=== PATIENT | male | born 1940 | race Caucasian/White ===

== ENCOUNTER 2018-05-20 15:08 | Inpatient (IN) | payer OTHER ==
[2018-05-20 15:47] LABS: HEMATOCRIT 50.8 % (42.0-52.0); HEMOGLOBIN 16.7 g/dl (14.0-18.0); MEAN CORPUSCULAR HEMOGLOBIN 30.5 pg (29.0-33.0); MEAN CORPUSCULAR HGB CONC 32.9 g/dl (32.0-37.0); MEAN CORPUSCULAR VOLUME 92.9 fl (82.0-101.0); MEAN PLATELET VOLUME 10.7 fl (7.4-10.4); PLATELET COUNT 342 10^3/UL (140-415); POSITIVE DIFF @See below; RED BLOOD COUNT 5.47 10^6/ul (4.70-6.10); RED CELL DISTRIBUTION WIDTH 14.7 % (11.5-14.5)
[2018-05-20 15:50] LABS: INR 1.01; PROTIME 13.4 Sec (11.9-14.9)
[2018-05-20 15:51] LABS: PARTIAL THROMBOPLASTIN TIME 23.8 Sec (23.0-35.0)
[2018-05-20 15:56] LABS: ALANINE AMINOTRANSFERASE 44 IU/L (13-69); ALBUMIN 3.9 g/dl (3.3-4.9); ALBUMIN/GLOBULIN RATIO 0.97; ALKALINE PHOSPHATASE 97 IU/L (42-121); ANION GAP 17 (8-16); ASPARTATE AMINO TRANSFERASE 37 IU/L (15-46); BILIRUBIN,INDIRECT 0.6 mg/dl (0-1.1); BILIRUBIN,TOTAL 0.6 mg/dl (0.2-1.3); BLOOD UREA NITROGEN 58 mg/dl (7-20); CALCIUM 9.8 mg/dl (8.4-10.2); CARBON DIOXIDE 28 mmol/L (21-31); CHLORIDE 116 mmol/L (97-110); CREATININE 1.37 mg/dl (0.61-1.24); GLUCOSE 90 mg/dl (70-220); POTASSIUM 4.9 mmol/L (3.5-5.1); SODIUM 156 mmol/L (135-144); TOTAL PROTEIN 7.9 g/dl (6.1-8.1)
[2018-05-20 15:58] LABS: LACTIC ACID 2.3 mmol/L (0.5-2.0)
[2018-05-20] MEDS: LORAZEPAM 2 MG INJ IV (16:01)
[2018-05-20] MEDS: VANCOMYCIN 1 GM (PMX) 250 ML IVPB (16:02)
[2018-05-20] MEDS: SODIUM CHLORIDE 0.9% 1L BAG IV* (16:03)
[2018-05-20 16:07] LABS: AMMONIA < 9 umol/l (9-30)
[2018-05-20 16:09] LABS: TROPONIN-I < 0.012 ng/ml (0.000-0.120)
[2018-05-20 16:43] LABS: BAND NEUTROPHILS #M 0.9 10^3/ul (0.0-0.6); BAND NEUTROPHILS % (M) 6 % (0-4); LYMPHOCYTES #M 1.6 10^3/ul (0.8-2.9); LYMPHOCYTES % (M) 10 % (15-51); MONOCYTE #M 0.4 10^3/ul (0.3-0.9); MONOCYTES % (M) 3 % (0-11); PLATELET ESTIMATE NORMAL; SEG NEUT #M 13.1 10^3/ul (1.6-7.5); SEGMENTED NEUTROPHILS (M) % 81 % (39-77)
[2018-05-20 16:44] LABS: ADD MAN DIFF? YES
[2018-05-20] MEDS: CEFEPIME 2GM/50 ML (PMX) 50 ML IVPB (17:33)
[2018-05-20 19:06] LABS: LACTIC ACID 1.6 mmol/L (0.5-2.0)
[2018-05-20] MEDS ORDERED: SOD CHLORIDE 0.9% 1,000 ML IV (19:18)
[2018-05-20 19:30] LABS: ADD UMIC NO; UR ASCORBIC ACID 40 mg/dL (NEGATIVE); UR BACTERIA FEW /HPF (NONE SEEN); UR BILIRUBIN (Dip) NEGATIVE (NEGATIVE); UR BLOOD (Dip) NEGATIVE (NEGATIVE); UR CLARITY SLIGHTLY CLOUDY (CLEAR); UR COLOR YELLOW (YELLOW); UR GLUCOSE (Dip) NEGATIVE (NEGATIVE); UR KETONES (Dip) TRACE mg/dL (NEGATIVE); UR LEUKOCYTE ESTERASE (Dip) NEGATIVE Leu/ul (NEGATIVE); UR MUCUS FEW /HPF (NONE SEEN); UR NITRITE (Dip) NEGATIVE (NEGATIVE); UR RBC 3 /HPF (0-5); UR SPECIFIC GRAVITY (Dip) 1.026 (1.003-1.030); UR TOTAL PROTEIN (Dip) NEGATIVE (NEGATIVE); UR UROBILINOGEN (Dip) NEGATIVE (NEGATIVE); UR WBC 5 /HPF (0-5)
[2018-05-20] MEDS ORDERED: ACETAMINOPHEN 325 MG TAB PO ×2 (19:30→21:00)
[2018-05-20] MEDS ORDERED: ONDANSETRON 4 MG INJ IV (19:30)
[2018-05-20] MEDS ORDERED: LORAZEPAM 0.5 MG TAB PO (21:00)
[2018-05-20] MEDS ORDERED: NACL 0.9% 3 ML SYG IV (21:00)
[2018-05-20] MEDS ORDERED: MAGNESIUM HYDROXIDE 30ML CUP PO (21:00)
[2018-05-20] MEDS ORDERED: BISACODYL (EC) 5 MG TAB PO (21:00)
[2018-05-20] MEDS ORDERED: VANCOMYCIN IV PER PHARMACY XX (21:00)
[2018-05-20] MEDS ORDERED: FAMOTIDINE 20 MG INJ IV (21:00)
[2018-05-20 21:42] LABS: LACTIC ACID 1.5 mmol/L (0.5-2.0)
[2018-05-20] MEDS: HALOPERIDOL 5 MG INJ IM (21:59)
[2018-05-20] MEDS: VANCOMYCIN 1 GM 250 ML IVPB (22:47)
[2018-05-20] MEDS: SOD CHLORIDE 0.9% 1,000 ML IV (22:48)
[2018-05-20] MEDS: DONEPEZIL 5 MG TAB PO (23:00)
[2018-05-20] MEDS: DIVALPROEX (ER) 500 MG TAB PO (23:00)
[2018-05-20] MEDS: FAMOTIDINE 20 MG TAB PO (23:00)
[2018-05-20] MEDS: QUETIAPINE 100 MG TAB PO (23:00)
[2018-05-20] MEDS: HEPARIN 5,000 UNIT/0.5 ML VIAL SC (23:11)
[2018-05-21] MEDS: LORAZEPAM 2 MG INJ IV ×2 (01:22→17:08)
[2018-05-21 05:42] LABS: ADD MAN DIFF? NO
[2018-05-21 05:47] LABS: BASOPHILS % 0.3 % (0.0-2.0); EOSINOPHILS % 0.2 % (0.0-7.0); HEMOGLOBIN 15.3 g/dl (14.0-18.0); LYMPHOCYTES # 1.3 10^3/ul (0.8-2.9); LYMPHOCYTES % 8.7 % (15.0-51.0); MEAN CORPUSCULAR HEMOGLOBIN 30.1 pg (29.0-33.0); MEAN CORPUSCULAR HGB CONC 31.9 g/dl (32.0-37.0); MEAN CORPUSCULAR VOLUME 94.3 fl (82.0-101.0); MONOCYTE # 0.9 10^3/ul (0.3-0.9); MONOCYTES % 5.8 % (0.0-11.0); NEUTROPHIL # 12.8 10^3/ul (1.6-7.5); NEUTROPHILS % 84.2 % (39.0-77.0); PLATELET COUNT 292 10^3/UL (140-415); RED BLOOD COUNT 5.09 10^6/ul (4.70-6.10); RED CELL DISTRIBUTION WIDTH 14.8 % (11.5-14.5)
[2018-05-21 05:47] LABS: WHITE BLOOD COUNT 15.1 10^3/ul (4.8-10.8)
[2018-05-21 06:24] LABS: ALANINE AMINOTRANSFERASE 48 IU/L (13-69); ALBUMIN/GLOBULIN RATIO 0.78; ALKALINE PHOSPHATASE 82 IU/L (42-121); ANION GAP 11 (8-16); ASPARTATE AMINO TRANSFERASE 42 IU/L (15-46); BILIRUBIN,INDIRECT 0.6 mg/dl (0-1.1); BILIRUBIN,TOTAL 0.6 mg/dl (0.2-1.3); BLOOD UREA NITROGEN 45 mg/dl (7-20); CALCIUM 9.2 mg/dl (8.4-10.2); CARBON DIOXIDE 28 mmol/L (21-31); CHLORIDE 121 mmol/L (97-110); CHOL/HDL RATIO 6.1 RATIO; CHOLESTEROL 104 mg/dl (100-200); CREATININE 1.16 mg/dl (0.61-1.24); GLUCOSE 89 mg/dl (70-220); HDL CHOLESTEROL 17 mg/dl (31-75); LDL CHOLESTEROL,CALCULATED 69 mg/dl; POTASSIUM 4.4 mmol/L (3.5-5.1); SODIUM 156 mmol/L (135-144); TOTAL PROTEIN 6.8 g/dl (6.1-8.1); TRIGLYCERIDES 92 mg/dl (0-149)
[2018-05-21 06:42] LABS: HEMOGLOBIN A1C 5.9 % (0-5.9)
[2018-05-21] MEDS: ASCORBIC ACID 500 MG TAB PO ×2 (09:00→20:55)
[2018-05-21] MEDS: DOCUSATE SODIUM 100 MG CAP PO ×2 (09:00→20:55)
[2018-05-21] MEDS: QUETIAPINE 25 MG TAB PO (09:00)
[2018-05-21] MEDS: FLUOXETINE 20 MG CAP PO (09:00)
[2018-05-21] MEDS: MEGESTROL (40 MG/ML) 10ML CUP PO (09:00)
[2018-05-21] MEDS: FAMOTIDINE 20 MG TAB PO ×2 (09:00→20:55)
[2018-05-21] MEDS: CEFEPIME 1GM/50 ML (PMX) 50 ML IVPB ×2 (09:18→20:59)
[2018-05-21] MEDS: DEXTROSE 5% WATER 500 ML BAG IV (09:30)
[2018-05-21 10:29] LABS: OSMOLALITY 331 mOsm/kg (280-295)
[2018-05-21] MEDS: METOPROLOL 25 MG TAB PO (10:30)
[2018-05-21 10:36] LABS: ANION GAP 13 (8-16); BLOOD UREA NITROGEN 41 mg/dl (7-20); CALCIUM 8.8 mg/dl (8.4-10.2); CARBON DIOXIDE 24 mmol/L (21-31); CHLORIDE 124 mmol/L (97-110); CREATININE 1.06 mg/dl (0.61-1.24); GLUCOSE 77 mg/dl (70-220); POTASSIUM 4.6 mmol/L (3.5-5.1); SODIUM 156 mmol/L (135-144)
[2018-05-21] MEDS: HEPARIN 5,000 UNIT/0.5 ML VIAL SC ×2 (10:39→21:13)
[2018-05-21] MEDS: VANCOMYCIN 1 GM 250 ML IVPB (10:46)
[2018-05-21] MEDS: DEXTROSE 5% 1,000 ML IV ×3 (10:48→21:15)
[2018-05-21 11:38] LABS: PREALBUMIN 8.6 mg/dl (17.6-36.0)
[2018-05-21] MEDS: ZINC SULFATE 220 MG CAP PO (12:00)
[2018-05-21] MEDS: MULTIVITAMINS/MINERALS TAB PO (12:00)
[2018-05-21] MEDS ORDERED: ASCORBIC ACID 500 MG TAB PO (12:00)
[2018-05-21 15:06] LABS: ANION GAP 12 (8-16); BLOOD UREA NITROGEN 38 mg/dl (7-20); CALCIUM 9.1 mg/dl (8.4-10.2); CARBON DIOXIDE 25 mmol/L (21-31); CHLORIDE 122 mmol/L (97-110); GLUCOSE 103 mg/dl (70-220); POTASSIUM 4.3 mmol/L (3.5-5.1); SODIUM 155 mmol/L (135-144)
[2018-05-21 18:27] LABS: ADD UMIC NO; UR ASCORBIC ACID 40 mg/dL (NEGATIVE); UR BACTERIA FEW /HPF (NONE SEEN); UR BILIRUBIN (Dip) NEGATIVE (NEGATIVE); UR BLOOD (Dip) NEGATIVE (NEGATIVE); UR CLARITY SLIGHTLY CLOUDY (CLEAR); UR COLOR YELLOW (YELLOW); UR GLUCOSE (Dip) NEGATIVE (NEGATIVE); UR KETONES (Dip) 1+ mg/dL (NEGATIVE); UR LEUKOCYTE ESTERASE (Dip) NEGATIVE Leu/ul (NEGATIVE); UR NITRITE (Dip) NEGATIVE (NEGATIVE); UR RBC 4 /HPF (0-5); UR SPECIFIC GRAVITY (Dip) 1.026 (1.003-1.030); UR TOTAL PROTEIN (Dip) NEGATIVE (NEGATIVE); UR UROBILINOGEN (Dip) NEGATIVE (NEGATIVE); UR WBC 1 /HPF (0-5)
[2018-05-21 18:54] LABS: ANION GAP 10 (8-16); BLOOD UREA NITROGEN 36 mg/dl (7-20); CALCIUM 8.9 mg/dl (8.4-10.2); CARBON DIOXIDE 27 mmol/L (21-31); CHLORIDE 122 mmol/L (97-110); CREATININE 1.01 mg/dl (0.61-1.24); CREATININE,URINE RANDOM 105.05 mg/dl (20-370); GLUCOSE 105 mg/dl (70-220); POTASSIUM 4.2 mmol/L (3.5-5.1); SODIUM 155 mmol/L (135-144)
[2018-05-21 18:54] LABS: SODIUM,URINE RANDOM 120 mmol/L (30-90)
[2018-05-21 20:43] LABS: OSMOLALITY,URINE 952 mOsm/kg (250-1200)
[2018-05-21] MEDS: DIVALPROEX (ER) 500 MG TAB PO (20:55)
[2018-05-21] MEDS: QUETIAPINE 100 MG TAB PO (20:55)
[2018-05-21] MEDS: DONEPEZIL 5 MG TAB PO (20:55)
[2018-05-21] MEDS ORDERED: PERMETHRIN 5% 60 GM CR TOP (21:00)
[2018-05-21 21:58] LABS: VANCOMYCIN,TROUGH 12.4 ug/ml (10.0-20.0)
[2018-05-21 22:21] LABS: ANION GAP 11 (8-16); BLOOD UREA NITROGEN 36 mg/dl (7-20); CALCIUM 9.2 mg/dl (8.4-10.2); CARBON DIOXIDE 26 mmol/L (21-31); CHLORIDE 120 mmol/L (97-110); CREATININE 1.05 mg/dl (0.61-1.24); GLUCOSE 102 mg/dl (70-220); POTASSIUM 4.2 mmol/L (3.5-5.1); SODIUM 153 mmol/L (135-144)
[2018-05-22] MEDS: LORAZEPAM 2 MG INJ IV ×4 (00:22→21:35)
[2018-05-22] MEDS: DEXTROSE 5% 1,000 ML IV ×3 (02:35→20:33)
[2018-05-22 06:50] LABS: ANION GAP 14 (8-16); BLOOD UREA NITROGEN 32 mg/dl (7-20); CALCIUM 9.4 mg/dl (8.4-10.2); CARBON DIOXIDE 25 mmol/L (21-31); CHLORIDE 119 mmol/L (97-110); CREATININE 1.01 mg/dl (0.61-1.24); GLUCOSE 93 mg/dl (70-220); MAGNESIUM 2.7 mg/dl (1.7-2.5); PHOSPHORUS 3.4 mg/dl (2.5-4.9); SODIUM 153 mmol/L (135-144)
[2018-05-22] MEDS: QUETIAPINE 25 MG TAB PO (09:00)
[2018-05-22] MEDS: FLUOXETINE 20 MG CAP PO (09:00)
[2018-05-22] MEDS: ASCORBIC ACID 500 MG TAB PO ×2 (09:00→21:00)
[2018-05-22] MEDS: FAMOTIDINE 20 MG TAB PO ×2 (09:00→21:00)
[2018-05-22] MEDS: MULTIVITAMINS/MINERALS TAB PO (09:00)
[2018-05-22] MEDS: ZINC SULFATE 220 MG CAP PO (09:00)
[2018-05-22] MEDS: METOPROLOL 25 MG TAB PO (09:00)
[2018-05-22] MEDS: MEGESTROL (40 MG/ML) 10ML CUP PO (09:00)
[2018-05-22] MEDS: DOCUSATE SODIUM 100 MG CAP PO ×2 (09:00→21:00)
[2018-05-22] MEDS: CEFEPIME 1GM/50 ML (PMX) 50 ML IVPB ×2 (09:19→20:25)
[2018-05-22] MEDS: HEPARIN 5,000 UNIT/0.5 ML VIAL SC ×2 (09:57→21:44)
[2018-05-22] MEDS: VANCOMYCIN 1 GM 250 ML IVPB ×2 (11:28→22:17)
[2018-05-22 12:36] LABS: HEPATITIS C VIRAL ANTIBODY NEGATIVE (NEGATIVE)
[2018-05-22 14:13] LABS: ANION GAP 12 (8-16); BLOOD UREA NITROGEN 27 mg/dl (7-20); CALCIUM 7.6 mg/dl (8.4-10.2); CARBON DIOXIDE 24 mmol/L (21-31); CHLORIDE 121 mmol/L (97-110); GLUCOSE 79 mg/dl (70-220); POTASSIUM 3.9 mmol/L (3.5-5.1); SODIUM 153 mmol/L (135-144)
[2018-05-22 15:00] LABS: RAPID PLASMA REAGIN NONREACTIVE (NR)
[2018-05-22] MEDS: DONEPEZIL 5 MG TAB PO (21:00)
[2018-05-22] MEDS: DIVALPROEX (ER) 500 MG TAB PO (21:00)
[2018-05-22] MEDS: QUETIAPINE 100 MG TAB PO (21:00)
[2018-05-22] MEDS: HALOPERIDOL 5 MG INJ IM (22:14)
[2018-05-22] MEDS: BALSAM PERU/CASTOR OIL 60 GM TUBE TOP (22:21)
[2018-05-23] MEDS: DEXTROSE 5% 1,000 ML IV ×2 (05:50→13:55)
[2018-05-23 06:13] LABS: ADD MAN DIFF? NO
[2018-05-23 06:19] LABS: BASOPHILS % 0.3 % (0.0-2.0); EOSINOPHILS # 0.2 10^3/ul (0.0-0.5); EOSINOPHILS % 1.3 % (0.0-7.0); HEMATOCRIT 44.7 % (42.0-52.0); HEMOGLOBIN 14.9 g/dl (14.0-18.0); LYMPHOCYTES # 1.2 10^3/ul (0.8-2.9); LYMPHOCYTES % 9.9 % (15.0-51.0); MEAN CORPUSCULAR HEMOGLOBIN 30.7 pg (29.0-33.0); MEAN CORPUSCULAR HGB CONC 33.3 g/dl (32.0-37.0); MEAN CORPUSCULAR VOLUME 92.2 fl (82.0-101.0); MEAN PLATELET VOLUME 10.7 fl (7.4-10.4); MONOCYTE # 0.6 10^3/ul (0.3-0.9); NEUTROPHIL # 10.2 10^3/ul (1.6-7.5); NEUTROPHILS % 83.1 % (39.0-77.0); PLATELET COUNT 281 10^3/UL (140-415); RED BLOOD COUNT 4.85 10^6/ul (4.70-6.10); RED CELL DISTRIBUTION WIDTH 14.3 % (11.5-14.5)
[2018-05-23 06:19] LABS: WHITE BLOOD COUNT 12.3 10^3/ul (4.8-10.8)
[2018-05-23 06:35] LABS: ANION GAP 13 (8-16); BLOOD UREA NITROGEN 29 mg/dl (7-20); CALCIUM 8.8 mg/dl (8.4-10.2); CARBON DIOXIDE 22 mmol/L (21-31); CHLORIDE 118 mmol/L (97-110); CREATININE 0.92 mg/dl (0.61-1.24); GLUCOSE 107 mg/dl (70-220); MAGNESIUM 2.3 mg/dl (1.7-2.5); PHOSPHORUS 2.9 mg/dl (2.5-4.9); POTASSIUM 3.8 mmol/L (3.5-5.1); SODIUM 149 mmol/L (135-144)
[2018-05-23] MEDS: FAMOTIDINE 20 MG TAB PO ×2 (08:48→20:36)
[2018-05-23] MEDS: METOPROLOL 25 MG TAB PO (08:48)
[2018-05-23] MEDS: ASCORBIC ACID 500 MG TAB PO ×2 (08:48→20:36)
[2018-05-23] MEDS: FLUOXETINE 20 MG CAP PO (08:48)
[2018-05-23] MEDS: MEGESTROL (40 MG/ML) 10ML CUP PO (08:49)
[2018-05-23] MEDS: DOCUSATE SODIUM 100 MG CAP PO ×2 (08:49→20:35)
[2018-05-23] MEDS: ZINC SULFATE 220 MG CAP PO (08:49)
[2018-05-23] MEDS: QUETIAPINE 25 MG TAB PO (08:49)
[2018-05-23] MEDS: MULTIVITAMINS/MINERALS TAB PO (08:49)
[2018-05-23] MEDS: CEFEPIME 1GM/50 ML (PMX) 50 ML IVPB ×2 (08:49→20:35)
[2018-05-23] MEDS: HEPARIN 5,000 UNIT/0.5 ML VIAL SC ×2 (09:00→20:33)
[2018-05-23] MEDS: BALSAM PERU/CASTOR OIL 60 GM TUBE TOP ×2 (09:00→20:37)
[2018-05-23] MEDS: VANCOMYCIN 1 GM 250 ML IVPB ×2 (09:33→23:10)
[2018-05-23] MEDS: LORAZEPAM 2 MG INJ IV ×2 (11:28→17:30)
[2018-05-23] MEDS: ONDANSETRON 4 MG INJ IV (14:17)
[2018-05-23] MEDS: DONEPEZIL 5 MG TAB PO (20:35)
[2018-05-23] MEDS: DIVALPROEX (ER) 500 MG TAB PO (20:36)
[2018-05-23] MEDS: QUETIAPINE 100 MG TAB PO (20:36)
[2018-05-24] MEDS: DEXTROSE 5% 1,000 ML IV ×2 (02:47→05:53)
[2018-05-24 05:26] LABS: ADD MAN DIFF? NO
[2018-05-24 05:36] LABS: BASOPHILS % 0.3 % (0.0-2.0); EOSINOPHILS # 0.3 10^3/ul (0.0-0.5); EOSINOPHILS % 2.2 % (0.0-7.0); HEMATOCRIT 44.4 % (42.0-52.0); HEMOGLOBIN 14.8 g/dl (14.0-18.0); LYMPHOCYTES # 1.5 10^3/ul (0.8-2.9); LYMPHOCYTES % 13.4 % (15.0-51.0); MEAN CORPUSCULAR HEMOGLOBIN 30.8 pg (29.0-33.0); MEAN CORPUSCULAR HGB CONC 33.3 g/dl (32.0-37.0); MEAN CORPUSCULAR VOLUME 92.5 fl (82.0-101.0); MEAN PLATELET VOLUME 10.9 fl (7.4-10.4); MONOCYTE # 0.5 10^3/ul (0.3-0.9); MONOCYTES % 4.8 % (0.0-11.0); NEUTROPHIL # 8.9 10^3/ul (1.6-7.5); NEUTROPHILS % 78.8 % (39.0-77.0); PLATELET COUNT 296 10^3/UL (140-415); RED CELL DISTRIBUTION WIDTH 14.1 % (11.5-14.5)
[2018-05-24 05:36] LABS: WHITE BLOOD COUNT 11.3 10^3/ul (4.8-10.8)
[2018-05-24 06:09] LABS: ANION GAP 11 (8-16); BLOOD UREA NITROGEN 23 mg/dl (7-20); CALCIUM 8.6 mg/dl (8.4-10.2); CARBON DIOXIDE 25 mmol/L (21-31); CHLORIDE 111 mmol/L (97-110); CREATININE 0.92 mg/dl (0.61-1.24); GLUCOSE 97 mg/dl (70-220); MAGNESIUM 2.1 mg/dl (1.7-2.5); PHOSPHORUS 2.9 mg/dl (2.5-4.9); POTASSIUM 4.2 mmol/L (3.5-5.1); SODIUM 143 mmol/L (135-144)
[2018-05-24] MEDS: QUETIAPINE 25 MG TAB PO (09:00)
[2018-05-24] MEDS: MULTIVITAMINS/MINERALS TAB PO (09:00)
[2018-05-24] MEDS: MEGESTROL (40 MG/ML) 10ML CUP PO (09:00)
[2018-05-24] MEDS: ZINC SULFATE 220 MG CAP PO (09:00)
[2018-05-24] MEDS: FLUOXETINE 20 MG CAP PO (09:00)
[2018-05-24] MEDS: METOPROLOL 25 MG TAB PO (09:00)
[2018-05-24] MEDS: FAMOTIDINE 20 MG TAB PO (09:00)
[2018-05-24] MEDS: ASCORBIC ACID 500 MG TAB PO (09:00)
[2018-05-24] MEDS: DOCUSATE SODIUM 100 MG CAP PO (09:00)
[2018-05-24] MEDS: CEFEPIME 1GM/50 ML (PMX) 50 ML IVPB (09:50)
[2018-05-24] MEDS: BALSAM PERU/CASTOR OIL 60 GM TUBE TOP (09:50)
[2018-05-24] MEDS: VANCOMYCIN 1 GM 250 ML IVPB (09:51)
[2018-05-24] MEDS: HEPARIN 5,000 UNIT/0.5 ML VIAL SC (10:28)
[2018-05-24 17:11] LABS: CREATININE, RANDOM URINE 103 mg/dL (20-320); MICROALBUMIN 2.1 mg/dL; MICROALBUMIN/CREATININE RATIO 20 (<30)
== END 2018-05-24 14:38 | disposition hospice, home (50) | DRG 871 ==
LOC: 6WM 05-22 08:45 → E/R 15:08 → 6WM 19:18
DX: A41.9 Sepsis, unspecified organism (principal); L89.153 Pressure ulcer of sacral region, stage 3; L89.323 Pressure ulcer of left buttock, stage 3; G93.41 Metabolic encephalopathy; E43 Unspecified severe protein-calorie malnutrition; E87.0 Hyperosmolality and hypernatremia; E87.2 Acidosis; Z68.1 Body mass index [BMI] 19.9 or less, adult; N17.9 Acute kidney failure, unspecified; F05 Delirium due to known physiological condition; Z66 Do not resuscitate; G30.8 Other Alzheimer's disease; F02.80 Dementia in other diseases classified elsewhere, unspecified severity, without behavioral disturbance, psychotic disturbance, mood disturbance, and anxiety; I48.0 Paroxysmal atrial fibrillation
CPT/HCPCS: 36415; 70450; 71045; 76775; 80048; 80053; 80061; 80202; 81001; 81003; 82043; 82140; 83036; 83605; 83735; 83930; 83935; 84100; 84134; 84155; 84300; 84443; 84484; 85025; 85610; 85730; 86592; 86803; 87040; 87086; 92610; 93005; 93306; 96374; 96375; 99291-25